=== PATIENT | male | born 1990 | race Caucasian/White ===

== ENCOUNTER 2023-04-28 18:14 | Emergency (ER) | payer SELFPAY ==
[~2023-04-28] VITALS: Ht 177.8 cm; Wt 68.0 kg
[~2023-04-28 18:14] MED LIST: DICY20TA57 PO
--- NOTE | 2023-04-28 18:40 | ED Chest Pain ---
General Chief Complaint: Allergic Reaction Stated Complaint: POSSIBLE REACTION TO MEDICATION Nursing Triage Note: PT AMBULATE TO ROOM FT1 WITHOUT DIFFICULTY WITH C/O POSSIBLE ALLERGIC REACTION TO AN ABX. PT REPORTS STARTING AMOXICILLIN YESTERDAY AND HAS HAD X2 DOSES. PT REPORTS TINGLING TO BILAT HANDS, SOA, DIZZYNESS X1 HOUR [employer]ING [employer]. Source: patient Exam Limitations: no limitations (SHANIKA SNIDER APRN) History of Present Illness Date Seen by Provider: Apr 28, 2023 Time Seen by Provider: 18:20 Initial Comments 32-year-old male presents to the ER with complaints of sudden onset of iawx-yds-zqnmtkn feeling in his hands and feet, tightness in his lungs, pressure in his chest, feeling like he is going to pass out. Symptoms started 1 hour prior to arrival. He currently has a floating feeling in his head, still complains of the xuqc-ptg-ienunub in his hands and feet, and pressure in his chest. He denies any hyperventilation prior to symptoms starting. States that he was on the toilet having a bowel movement. States at that time he was having diarrhea, was not straining to defecate. Denies abdominal pain, nausea, vomiting, fever. Reports history of anxiety, does not take any medications for it. He is currently being treated for a dental infection on amoxicillin, states he thinks that this could be a reaction to the amoxicillin. He has had 2 doses of the amoxicillin. (SHANIKA SNIDER APRN) Allergies and Home Medications Allergies Coded Allergies: No Known Drug Allergies (Unverified , 01/18/14) Patient Home Medication List Home Medication List Reviewed: Yes (SHANIKA SNIDER APRN) Clindamycin HCl (Clindamycin HCl) 150 Mg Capsule, 450 MG PO TID Prescribed by: Shanika Fish on 04/28/232134 Dicyclomine Hcl (Bentyl) 20 Mg Tablet, 1 EACH PO AC, (Reported) Entered as Reported by: MONIE TORIBIO on 01/18/142032 Review of Systems Review of Systems Constitutional: see HPI (SHANIKA SNIDER APRN) Past Vfipjkb-Dyfmmc-Vlaebj Hx Patient Social History Tobacco Use?: No Smoking Status: Never a Smoker Smokeless Tobacco Frequency: Never a User Use of E-Cig and/or Vaping dev: Yes E-Cig or Vaping type used: Nicotine Use of E-Cig and/or Vaping Blaze: Current Everyday User Substance use?: Yes Substance type: Marijuana Substance frequency: Once in a while Alcohol Use?: Yes Alcohol Frequency: Once in a while Pt feels they are or have been: No (SHNAIKA SNIDER APRN) Immunizations Up To Date Tetanus Booster (TDap): Unknown (SHANIKA SNIDER APRN) Seasonal Allergies Seasonal Allergies: Yes (TAKES RADHA DAILY ) (SHANIKA SNIDER APRN) Past Medical History Reproductive Disorders: No Sexually Transmitted Disease: No Colitis (SHANIKA SNIDER APRN) Physical Exam Vital Signs Vital Signs - First Documented 04/28/23 21:42 Pulse Ox 97 (MARIS SINGH DO) Vital Signs Capillary Refill : Less Than 3 Seconds (SHANIKA SNIDER APRN) Height, Weight, BMI Height: 5'9" Weight: 140lbs. oz. 63.215571lv; 21.00 BMI Method:Stated General Appearance: No Apparent Distress, WD/WN Neck: Normal Inspection, Supple Respiratory: Lungs Clear, Normal Breath Sounds, No Accessory Muscle Use, No Respiratory Distress Cardiovascular: Regular Rate, Rhythm Neurologic/Psychiatric: Alert, No Motor/Sensory Deficits, Normal Mood/Affect Skin: Normal Color, Warm/Dry (SHANIKA SNIDER APRN) Progress/Results/Core Measures Results/Orders Lab Results Laboratory Tests Test 04/28/23 18:44 04/28/23 20:20 Range/Units White Blood Count 7.6 4.3-11.0 10^3/uL Red Blood Count 5.19 4.30-5.52 10^6/uL Hemoglobin 16.1 13.3-17.7 g/dL Hematocrit 47 40-54 % Mean Corpuscular Volume 90 80-99 fL Mean Corpuscular Hemoglobin 31 25-34 pg Mean Corpuscular Hemoglobin Concent 35 32-36 g/dL Red Cell Distribution Width 11.9 10.0-14.5 % Platelet Count 284 130-400 10^3/uL Mean Platelet Volume 10.3 9.0-12.2 fL Immature Granulocyte % (Auto) 0 % Neutrophils (%) (Auto) 64 42-75 % Lymphocytes (%) (Auto) 24 12-44 % Monocytes (%) (Auto) 9 0-12 % Eosinophils (%) (Auto) 2 0-10 % Basophils (%) (Auto) 1 0-10 % Neutrophils # (Auto) 4.9 1.8-7.8 10^3/uL Lymphocytes # (Auto) 1.9 1.0-4.0 10^3/uL Monocytes # (Auto) 0.7 0.0-1.0 10^3/uL Eosinophils # (Auto) 0.2 0.0-0.3 10^3/uL Basophils # (Auto) 0.1 0.0-0.1 10^3/uL Immature Granulocyte # (Auto) 0.0 0.0-0.1 10^3/uL Prothrombin Time 12.9 12.2-14.7 SEC INR Comment 1.0 0.8-1.4 Activated Partial Thromboplast Time 29 24-35 SEC Sodium Level 142 135-145 MMOL/L Potassium Level 3.8 3.6-5.0 MMOL/L Chloride Level 102 98-107 MMOL/L Carbon Dioxide Level 26 21-32 MMOL/L Anion Gap 14 5-14 MMOL/L Blood Urea Nitrogen 12 7-18 MG/DL Creatinine 1.20 0.60-1.30 MG/DL Estimat Glomerular Filtration Rate 82 BUN/Creatinine Ratio 10 Glucose Level 108 H 70-105 MG/DL Calcium Level 10.2 H 8.5-10.1 MG/DL Corrected Calcium 8.5-10.1 MG/DL Magnesium Level 2.2 1.6-2.4 MG/DL Total Bilirubin 0.6 0.1-1.0 MG/DL Aspartate Amino Transf (AST/SGOT) 28 5-34 U/L Alanine Aminotransferase (ALT/SGPT) 27 0-55 U/L Alkaline Phosphatase 72 40-136 U/L Troponin I < 0.028 < 0.028 <0.028 NG/ML Total Protein 8.6 H 6.4-8.2 GM/DL Albumin 4.8 H 3.2-4.5 GM/DL (SAMANTHA,MARIS K DO) Medications Given in ED Current Medications Medications Dose Ordered Sig/Meche Route Start Time Stop Time Status Last Admin Dose Admin Hydroxyzine Pamoate 50 mg ONCE ONCE PO 04/28/23 18:45 04/28/23 18:46 DC 04/28/23 18:45 50 MG (SAMANTHA,MARIS K DO) Vital Signs/I&O 04/28/23 04/28/23 04/28/23 18:22 18:22 21:42 Temp 36.3 Pulse 99 64 Resp 19 18 B/P (MAP) 142/95 (111) 134/79 Pulse Ox 97 O2 Delivery Room Air Room Air Room Air (MARIS SINGH DO) Blood Pressure Mean: 111 Progress Progress Note : Progress Note Patient seen and evaluated, resting in recliner, appears anxious. Based on exam and symptoms, work-up initiated including CBC, CMP, coags, troponin, magnesium, EKG, chest x-ray. Hydroxyzine ordered. 2005 Labs and x-ray reviewed. CBC grossly normal. CMP grossly normal. Troponin negative. Coags normal. Chest x-ray shows no acute abnormality. Results discussed with patient. Patient reports that his symptoms are improving, still feels some pitd-ccl-fgaunav in his hands and feet. Will repeat a 3-hour troponin. 2132 repeat troponin negative. Results discussed with patient. I do not believe that the symptoms are a reaction to his amoxicillin, but I will prescribe him clindamycin if he would like to switch to that instead. Discharge instructions and return precautions provided. (SHANIKA SNIDER APRN) Initial ECG Impression Date: Apr 28, 2023 Initial ECG Impression Time: 18:49 Initial ECG Rate: 83 Initial ECG Rhythm: Normal Sinus Initial ECG Intervals: Normal Initial ECG Impression: Normal Initial ECG Comparisson: Unchanged (SHANIKA SNIDER APRN) Departure Impression Primary Impression: Chest pain Additional Impression: Dizziness Disposition: 01 HOME, SELF-CARE Condition: Stable Departure-Patient Inst. Decision time for Depature: 21:33 (SHANIKA SNIDER APRN) Referrals: NO,LOCAL PHYSICIAN (PCP/Family) Primary Care Physician Patient Instructions: Chest Pain, Adult ED Add. Discharge Instructions: I do not believe that the symptoms you are experiencing are related to your amoxicillin, however I have sent in clindamycin instead if your symptoms continue and you would prefer to switch medications. Return for severe chest pain, severe shortness of breath, or any other new, concerning, or worsening symptoms. All discharge instructions reviewed with patient and/or family. Voiced un derstanding. Scripts Clindamycin HCl (Clindamycin HCl) 150 Mg Capsule 450 MG PO TID for 7 Days, #63 CAP 0 Refills Prov: SHANIKA SNIDER APRN 04/28/23 ATTENDING PHYSICIAN NOTE: I WAS PHYSICALLY PRESENT ER PHYSICIAN, BUT I WAS NOT INVOLVED IN ANY DECISION MAKING OR ANY CARE OF THIS PATIENT AND I AM NOT COLLABORATING PHYSICIAN. (MARIS SINGH DO) SHANIKA SNIDER APRN Apr 28, 2023 18:40 MARIS SINGH DO Apr 29, 2023 05:45
[2023-04-28] MEDS ORDERED: NS IV 1000 ML 1,000 ML IV SCH (18:45)
[2023-04-28] MEDS ORDERED: hydrOXYzine 25 MG CAPSULE PO ONE (18:45)
[2023-04-28 18:50] LABS: BASOPHILS # (AUTO) 0.1 10^3/uL (0.0-0.1); BASOPHILS % (AUTO) 1 % (0-10); EOSINOPHILS # (AUTO) 0.2 10^3/uL (0.0-0.3); EOSINOPHILS % (AUTO) 2 % (0-10); HEMATOCRIT 47 % (40-54); HEMOGLOBIN 16.1 g/dL (13.3-17.7); LYMPHOCYTES # (AUTO) 1.9 10^3/uL (1.0-4.0); LYMPHOCYTES % (AUTO) 24 % (12-44); MEAN CORPUSCULAR HEMOGLOBIN 31 pg (25-34); MEAN CORPUSCULAR HGB CONC 35 g/dL (32-36); MEAN CORPUSCULAR VOLUME 90 fL (80-99); MEAN PLATELET VOLUME 10.3 fL (9.0-12.2); MONOCYTES # (AUTO) 0.7 10^3/uL (0.0-1.0); MONOCYTES % (AUTO) 9 % (0-12); NEUTROPHILS # (AUTO) 4.9 10^3/uL (1.8-7.8); NEUTROPHILS % (AUTO) 64 % (42-75); PLATELET COUNT 284 10^3/uL (130-400); WHITE BLOOD COUNT 7.6 10^3/uL (4.3-11.0)
[2023-04-28 19:03] LABS: ALBUMIN 4.8 GM/DL (3.2-4.5); CHLORIDE 102 MMOL/L (98-107); POTASSIUM 3.8 MMOL/L (3.6-5.0); SODIUM 142 MMOL/L (135-145)
[2023-04-28 19:04] LABS: CALCIUM 10.2 MG/DL (8.5-10.1)
[2023-04-28 19:06] LABS: GLUCOSE 108 MG/DL (70-105); PROTHROMBIN TIME PATIENT 12.9 SEC (12.2-14.7); TOTAL PROTEIN 8.6 GM/DL (6.4-8.2)
[2023-04-28 19:07] LABS: CARBON DIOXIDE 26 MMOL/L (21-32)
[2023-04-28 19:08] LABS: BILIRUBIN,TOTAL 0.6 MG/DL (0.1-1.0)
[2023-04-28 19:09] LABS: ALKALINE PHOSPHATASE 72 U/L (40-136); GFR ESTIMATED 82
[2023-04-28 19:10] LABS: BUN/CREATININE RATIO 10
--- NOTE | 2023-04-28 19:10 | Diagnostic Imaging Report ---
EXAMINATION: Chest 1 view. HISTORY: Chest pain. COMPARISON: None available. FINDINGS: Heart size and pulmonary vasculature are normal. The lungs are clear without consolidation, pleural effusion or pneumothorax. The osseous structures are intact. IMPRESSION: No acute radiographic abnormality in the chest. Dictated by: Dictated on workstation # [id number]
[2023-04-28 19:12] LABS: ALANINE AMINOTRANSFERASE 27 U/L (0-55); MAGNESIUM 2.2 MG/DL (1.6-2.4)
[2023-04-28] MEDS ORDERED: CLIN150C20 PO (21:35)
[2023-04-28 21:42] VITALS: BP 134/79
== END 2023-04-28 21:43 | disposition home or self-care (01) ==
LOC: EDUNIT# 18:14 → ER 18:17
DX: R07.89 Other chest pain (principal); R42 Dizziness and giddiness; K04.7 Periapical abscess without sinus; F17.290 Nicotine dependence, other tobacco product, uncomplicated; Z28.310 Unvaccinated for COVID-19
CPT/HCPCS: 36415; 71045; 80053; 83735; 84484; 85025; 85610; 85730; 93005; 93041